=== PATIENT | female | born 1970 | race Caucasian/White ===

== ENCOUNTER 2016-12-18 10:03 | Day surgery (SDC) | payer OTHER ==
--- NOTE | 2016-12-17 19:41 | HISTORY AND PHYSICAL ---
ADMITTED: 12/18/2016 HISTORY OF PRESENT ILLNESS: The patient is a 46-year-old female with a chief complaint of a chronic painful right foot and ankle. The patient has had a traumatic event where she twisted her right foot and ankle and was being seen by a airplane captain up in the [place] area and had been treated conservatively for 15 weeks, as well as offloading physical therapy. The foot has not progressed; it is still very symptomatic and painful. MRIs and CT scans revealed pathology in the lateral foot with the latest CT revealing a fracture of the second metatarsal base, as well as some noted thickening of the anterior talofibular ligament. MEDICAL/SURGICAL HISTORY: Past medical history: Essentially is noncontributory. Surgical history: Hysterectomy, bilateral wrist carpal tunnel and ligament repairs. MEDICATIONS: 1. Cyclobenzaprine 10 mg tablet 1 by mouth daily. 2. Gabapentin 300 mg tablet 1 by mouth t.i.d. 3. Meloxicam 15 mg tablet 1 by mouth daily. ALLERGIES: 1. REPORTS NO KNOWN DRUG OR FOOD ALLERGY. PRIMARY CARE PROVIDER: GENARO Thakkar SOCIAL HISTORY: She is . Does not smoke. Drinks socially. Employed at [employer] part-time. FAMILY HISTORY: Arthritis, heart disease and hypertension. REVIEW OF SYSTEMS: Ten-point review of systems noncontributory to the chief complaint. PHYSICAL EXAMINATION: GENERAL: The patient is alert, oriented x3. HEENT: PERRLA. Normocephalic. HEART: Regular rate and rhythm. Regular S1 and S2. LUNGS: Respiration clear to auscultation. No wheezing, rhonchi, or rales. ABDOMEN: Soft, tender, nondistended. No palpable masses. EXTREMITIES: Lower extremity/Vascular: DP and PT pulses are palpable at +2/4. Skin texture and turgor within normal limits. Subpapillary venous plexus capillary refill within normal limits. Orthopedically, there is tenderness to palpation on the anterior talofibular ligament with a positive anterior drawer sign of 4 mm. There is noted crepitus within the ankle joint. There is pain with palpation to the dorsum of the mid foot at the base of the second metatarsal. LAB/IMAGING: Imaging: CT scans revealed a nonhealed fracture of the base of the second metatarsal, as well as some thickening of the anterior talofibular ligament. IMPRESSION: 1. Delayed healing second metatarsal with the tarsometatarsal arthralgia. 2. Chronic ankle instability and impingement of the anterior talofibular ligament. PLAN: The patient is scheduled for an outpatient procedure consisting of an ankle arthroscopy with debridement, a lateral ankle stabilization and a tarsometatarsal arthrodesis of the second metatarsophalangeal with rigid internal fixation and bone graft. There are no contraindications to surgery at this time. Surgery is scheduled on outpatient basis at [facility] on 12/18/2016.
[~2016-12-18] VITALS: Ht 160 cm; Wt 108.9 kg
[~2016-12-18 10:03] MED LIST: ALBUTEROL HFA60 DOSE IN; CYCLOBENZAPRINE10 MG PO; MULTIVITAMIN1 TAB PO; NEURONTIN300 MG PO; VITAMIN D-31000 UNIT PO; VIVLODEX10 MG PO
--- NOTE | 2016-12-18 10:42 | NUR ---
PRE OP INSTRUCTIONS GIVEN AND SAFETY ISSUES DISCUSSED PT AND FAMILY HAD QUESTIONS ANSWERED PT CONFIRMED PROCEDURE PT VERIFIED SIGNATURE PT MARKED SITE
--- NOTE | 2016-12-18 10:44 | NUR ---
FIRST ATTEMPT IV LEFT WRIST UNSUCCESSFUL BY JAVI
[2016-12-18] MEDS ORDERED: DILAUDID2 MG PO (15:34)
[2016-12-18] MEDS ORDERED: ZOFRAN4 MG PO (15:34)
--- NOTE | 2016-12-18 15:35 | Provider's Discharge Care Plan ---
Problem, Goal, Plan Problem List 1. Sprain of other ligament of right ankle, subsequent encounter Goals: Improve function Instructions: Follow up as directed
--- NOTE | 2016-12-18 15:35 | Provider's Discharge Care Plan ---
Problem, Goal, Plan Problem List 1. Sprain of other ligament of right ankle, subsequent encounter Goals: Improve function Instructions: Follow up as directed
--- NOTE | 2016-12-18 16:19 | NUR ---
PT IS AWAKE. PT DENIES NAUSEA. PT STATES MILD RIGHT FOOT PAIN. RIGHT FOOT IS ELEVATED ON TWO PILLOWS, ICE PLACED UNDER RIGH KNEE PER MD ORDER. VSS. PT STATES SHE IS WARM AND COMFORTABLE. PT HAS SCOPOLAMINE PATCH BEHIND HER LEFT EAR. X-RAYS WERE TAKEN IN PACU.
--- NOTE | 2016-12-18 17:20 | NUR ---
RECEIVED PT FROM PACU DROWSY, BUT AROUSEABLE. O2 PER 2L NC WITH SATURATION 93-94% STATED PAIN 3/10, TOLERABLE FOR HER AT THAT TIME. SOFT SPLINT AND PAULINA WRAP IN PLACE. TOES WARM WITH GOOD CAP REFILL. RIGHT EXTREMITY ELEVATED ON PILLOWS WITH ICE PACKS IN PLACE. DRINKING AND EATING A SOFT DIET WITHOUT NAUSEA. DILAUDID 2MG PO GIVEN FOR PAIN 7/10. WCTM.
[2016-12-18 17:23] VITALS: BP 108/57
--- NOTE | 2016-12-18 17:25 | DIAGNOSTIC IMAGING REPORT ---
PROCEDURE: XR FOOT 3 VIEWS - RIGHT INDICATION: POST-OP- IN PACU TECHNIQUE: Three views. COMPARISON: Foot CT 10/15/2016 FINDINGS: Second metatarsal cuneiform fusion. One screws in place. Alignment is anatomic. IMPRESSION: 1. Second metatarsal cuneiform fusion
[2016-12-18 17:45] VITALS: BP 112/64
[2016-12-18 18:00] VITALS: BP 110/68
[2016-12-18 18:30] VITALS: BP 111/71
--- NOTE | 2016-12-18 19:55 | NUR ---
IV SITE REMOVED FROM LH. DILAUDID 4MG PO GIVEN AND EFFECTIVE FOR S/P RIGHT FOOT SURGICAL REPAIR. OOB WITH WALKER, NON-WEIGHT BEARING ON RLE, AND HELPED TO THE BR TO URINATE. PT TOLERATED FOOD WITHOUT NAUSEA & VOMITING. WENT OVER DC INSTRUCTIONS, WENT EARLIER TO HAVE PRESCRIPTIONS FILLED, GAVE EDUCATIONAL MATERIAL. PT STATED UNDERSTANDING. ESCORTED OUT TO PRIVATE CAR HOME.
--- NOTE | 2016-12-18 21:52 | OPERATIVE REPORT ---
DATE OF SURGERY: 12/18/2016 SURGEON: Diogo Umana DPM PREOPERATIVE DIAGNOSES: 1. Chronic ankle instability 2. Nonhealing of base of a second metatarsal fracture 3. Tarsometatarsal arthralgia POSTOPERATIVE DIAGNOSES: 1. Hemorrhagic synovitis and attenuation of the anterior talofibular ligament 2. Delayed union of a second metatarsal base fracture 3. 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 Ankle arthroscopy with debridement 2. Lateral ankle stabilization 3. Harvested bone graft 4. Arthrodesis of the second tarsometatarsal joint HEMOSTASIS: Achieved by a mid thigh tourniquet inflated to 300 mmHg pressure. TOURNIQUET TIME: Total tourniquet time, 120 minutes. MATERIALS: 3-0 and 4-0 Polysorb and 4-0 Surgipro. One Arthrex internal brace kit consisting of 2 SwiveLocks and #2 FiberWire. INJECTABLES: Injected 20 mL of 0.5% plain. COMPLICATIONS: None. CONDITION: The patient tolerated anesthesia, procedure well. INDICATIONS: The patient is a 46-year-old female who has undergone conservative care and treatment for approximately 15-16 weeks since late May. She has been immobilized in a fracture boot. MRI and CT confirmed delayed healing of a second metatarsal base fracture and arthralgia of the tarsometatarsal joint, as well as thickening of the anterior talofibular ligament. She has consented for the arthroscopy and stabilization and the arthrodesis. There are no contraindications to surgery at this time. SURGICAL TECHNIQUE: The patient was brought in to the operating room, placed on operating room table in a supine position. General anesthetic was administered. A pneumatic tourniquet was then placed above the right knee at mid thigh levels. At this time, the right lower extremity was prepped and draped in normal sterile fashion. An intraoperative pause was carried out with positive identification of proper limb, consent form verified and confirmed. An Esmarch bandage was then utilized to exsanguinate the limb. Tourniquet was then inflated. Attention was then directed to procedure 1. Ankle arthroscopy with debridement: Leg was placed in a leg us, and an Arthrex ankle distractor was then employed. An 18-gauge needle was then made on the anterior aspect of the medial gutter of the ankle. A #11 blade was then utilized. The portal was then dissected via portal dissection and deepened, blunt trocar was then utilized. The arthroscope was then introduced into the anterior aspect of the right ankle, the medial gutter. It was introduced from anterior, posterior, and upon entry it was noted to encounter some hemorrhagic synovitis on the anterior medial aspect of the ankle joint, then extending posterior and laterally where the attenuated and discolored aspect of the anterior talofibular ligament was visualized. A corresponding lateral incision was made on the anterior aspect of the lateral gutter. It was deepened by portal dissection with a curved hemostat, blunt trocar was then placed and a small joint shaver was then placed. The hemorrhagic synovium, as well as portions of the anterior talofibular ligaments, intracapsular nonviable or attenuated portion was resected. Then 2500 mL of Lactated Ringer's were placed through the joint. The shaver and scope were removed and the incisions were then reapproximated with 4-0 Surgipro. Attention was directed to procedure 2. Lateral ankle stabilization: An anterolateral incision approximately 5 cm in length was made on the distal anterior aspect of the fibula. It was deepened down to the periosteum. A periosteal elevator was then utilized to incise on the distal anterior fibula and reflected. The anterior talofibular ligament was visualized and it was hypertrophied, discolored and been placed through a range of motion, diastasis was noted, and additional, as well as instability, particularly in a plantar flexion, in an inverted position. The nonviable ligament was resected with a Metzenbaum scissor. A guidewire was then driven obliquely in the distal anterior fibula from inferior to superior and the lateral gutter verified under fluoroscopy for proper placement. It was then drilled with a 2.7 drill, tapped with 2.7 tap and then a SwiveLock with #2 FiberWire was then placed. The fibers of the anterior talofibular ligament now healthy were followed toward its insertion point on the anterior aspect of the trochlear surface of the talar surface and the neck. Foot was held in a neutral position and a guidewire was then driven obliquely at 45 degrees from anterior to posterior towards the posterior aspect of the medial malleolus. It verified under fluoroscopy for proper placement. It was then drilled with a 2.7 drill, overdrilled with a 3.4 drill and tapped and with the foot held in a neutral position. The FiberWire was then inserted into an additional SwiveLock and then placed under proper tension with the [place] elevator and placed inferior to the tape ensuring adequate tension. The foot and ankle were then placed through a range of motion with excellent maintenance of stability. The area was flushed. The periosteum and capsule were then reapproximated in a [id number] fashion with 3-0 Polysorb, subcutaneous with 4-0 and skin edge reapproximated in a running fashion with 4-0 Surgipro. Attention was directed to procedure 3. Harvesting of a bone graft: The attention was directed to the lateral wall of the calcaneus where a 3 cm horizontal incision made parallel to the longitudinal axis of the calcaneus was made. It was carried down to bone. [place] elevator was then utilized to reflect the periosteum. A 6 mm bone harvester was then employed with taking approximately a 6 mm bone plug. Bone plug consisted of cancellous bone. It was then backfilled with DBM bone putty. The area was flushed. Periosteum reapproximated with 3-0 Polysorb. Skin edges were then reapproximated in a running fashion with 4-0 Surgipro. Attention was then directed to procedure 4. Second tarsometatarsal arthrodesis: Attention was directed to the dorsum of the second tarsometatarsal under fluoroscopy. An incision was made overlying the base of the second metatarsal extending proximally to the medial cuneiform. A joint distractor was then utilized to allow access to the joint. It was noted to be irregular. A curette and osteotomes were utilized to fish scale and remove the articulating surface. The bone graft, which was obtained, was then packed. The distractor was then utilized to impact and properly position the TMT joint. Then a 3.5 headless compression screw was utilized and placed from the second cuneiform towards the second metatarsal obliquely and verified under fluoroscopy for proper placement in both the sagittal and transverse planes for proper and anatomic reduction, which was verified and the screw was engaged. It was done under standard AO techniques and counter-sinking done prior to placement and the screw was flush and not palpable. The area was flushed. Capsule and periosteum were reapproximated with 3-0 Polysorb, subcutaneous with 4-0 and skin edge was then reapproximated in a running fashion with 4-0 Surgipro. The area was locally anesthetized with aforementioned local anesthetic. The tourniquet was released at 120 minutes with reactive hyperemia and good digital perfusion. A light compressive dressing was applied. Prior to leaving the operating room, she was placed in a [id number] prefabricated Ortho-Glass splint. The patient tolerated procedures without complication, left the operating room with vital signs stable. While in recovery, written instructions, absolutely nonweightbearing. Prognosis is guarded. She will be discharged home in stable condition.
== END 2016-12-18 20:00 | disposition home or self-care (01) ==
LOC: OR SRH 10:03 → SCU SRH 10:07 → OR SRH 12:30 → SCU SRH 15:55 → OR SRH 15:55 → ACUTE2 SRH 17:58 → OR SRH 20:00
DX: M24.271 Disorder of ligament, right ankle (principal); S92.321G Displaced fracture of second metatarsal bone, right foot, subsequent encounter for fracture with delayed healing; M19.071 Primary osteoarthritis, right ankle and foot; M65.871 Other synovitis and tenosynovitis, right ankle and foot